=== PATIENT | female | born 1955 | race Caucasian/White ===

== ENCOUNTER → 2018-10-16 | Outpatient (CLI) | payer BC, OTHER ==
--- NOTE | 2018-10-16 13:57 | PCVCIMAG ---
APPROVED REPORT Laterality: Bilateral Indications Bruit Doppler Spectral Velocity Analysis PSV / EDVPSV / EDV ECA (R) 107 / 22 cm/sECA (L) 74 / 19 cm/s dICA (R) 62 / 22 cm/sdICA (L) 57 / 23 cm/s Yogesh (R) 65 / 23 cm/smICA (L) 76 / 30 cm/s pICA (R) 55 / 17 cm/spICA (L) 52 / 14 cm/s Bulb (R) 51 / 16 cm/sBulb (L) 40 / 17 cm/s dCCA (R) 60 / 18 cm/sdCCA (L) 90 / 21 cm/s mCCA (R) 74 / 18 cm/smCCA (L) 96 / 29 cm/s Vert (R) 31 / 10 cm/sVert (L) 41 / 15 cm/s ICA/CCA ICA/CCA Findings The right carotid bulb has moderate calcified plaque. The right proximal internal carotid artery shows <40% stenosis. The right common carotid artery shows no significant stenosis. The right external carotid artery shows no significant stenosis. The left carotid bulb has mild calcified plaque. The left proximal internal carotid artery shows no significant stenosis. The left common carotid artery shows no significant stenosis. The left external carotid artery shows no significant stenosis. Conclusion 1. Right internal carotid artery stenosis (<40%) 2. Left internal carotid artery plaquing without significant stenosis. 3. Antegrade vertebral flow.
--- NOTE | 2018-10-16 15:24 | PCVCIMAG ---
APPROVED REPORT Study performed: 10/16/2018 14:17:21 Exam: Stress Echocardiogram Indication: Hyperlipidemia, Elevated Calclium Score Patient Location: Echo lab Stress Nurse: Shama Elliott RN Status: routine Ht: 5 ft 2 in HR: 74 bpm BP: 110/70 mmHg Rhythm: NSR Medical History Medical History: Hyperlipidemia Procedure The patient underwent an Exercise Stress Test using the [facility] Protocol. Blood pressure, heart rate, and EKG were monitored. An Echocardiogram was performed by pc maintenance technician in four stages in quad fashion. At peak stress, four selected images were obtained and placed side by side with resting images for comparison. Stress Test Details Stress Test: Exercise stress testing was performed using a [facility] protocol. HR Resting HR: 74 bpmMax Heart Rate (APMHR): 158 bpm Max HR Achieved: 166 bpmTarget HR (85% APMHR): 134 bpm % of APMHR: 105 Recovery HR: 93 bpm HR response to stress: Normal HR response to stress BP Resting BP: 110/70 mmHg Max BP: 156/70 mmHg Recovery BP: 140/72 mmHg BP response to stress: Normal blood pressure response to stress. ECG Resting ECG: Sinus Rhythm Stress ECG: Sinus Rhythm Recovery ECG: Sinus Rhythm Clinical Reason for Termination: Maximal effort Exercise duration: 10 min 18 sec Highest Stage Achieved: Stage 4: 4.2 mph at 16% grade. Exercise capacity: 13.40 METs Overall Exercise Capacity for Age: Good Pre-Stress Echo The resting Echocardiogram showed normal left ventricular contractility with an estimated Ejection Fraction of about 55-60%. Normal wall motion in all segments on baseline images. Post-Stress Echo The stress Echocardiogram showed normal left ventricular contractility with an estimated Ejection Fraction of about 60-65%. Normal augmentation of wall motion in all segments on post stress images. Clinical No clinical or ECG evidence for ischemia. Conclusion Clinical Response: Non-ischemic Exercise Capacity: Average Stress ECG Response: Non-ischemic Stress Echo Images: Non-ischemic The left ventricle is normal in size and wall thickness in both the rest and stress images. No valvular abnormalities. Other Information Study Quality: Technically Difficult <Conclusion> The left ventricle is normal in size and wall thickness in both the rest and stress images. No valvular abnormalities.
== END | disposition home or self-care (01) ==
LOC: PCVCIMAG 13:00
PROVIDERS: ATTEND Internal Medicine Cardiovascular Disease
DX: I65.21 Occlusion and stenosis of right carotid artery (principal); E78.00 Pure hypercholesterolemia, unspecified
CPT/HCPCS: 93325; 93351; 93880